=== PATIENT | male | born 1985 | race Caucasian/White ===

== ENCOUNTER 2022-08-01 21:53 | Emergency (ER) | payer MEDICAID, OTHER ==
[~2022-08-01] VITALS: Ht 177.8 cm; Wt 79.4 kg
[~2022-08-01 21:53] MED LIST: CETIRIZINE; CIPR-273; CITA20TA9; FLUN0.02; LEVAPOW; METH100I; MIRT1TAB38; MISCSOL; SERT25TA84; [UNRECOGNIZED DRUG - OTHER]
[2022-08-02] MEDS ORDERED: IPRATROPIUM BROM 0.5 MG/2.5ML INH SOL NEB ONE (00:45)
[2022-08-02] MEDS ORDERED: KETOROLAC TROMETH 60MG/2ML VIAL IM ONE (00:45)
[2022-08-02] MEDS ORDERED: methylPREDNISolone SOD SUCC 40 MG/ML VL IM ONE (00:45)
[2022-08-02] MEDS ORDERED: ALBUTEROL SULF 2.5 MG/0.5ML(0.5%) NEB SOLN NEB ONE (00:45)
[2022-08-02] MEDS ORDERED: ALBU108A5 IN (00:55)
[2022-08-02] MEDS ORDERED: PRED15SO33 PO (00:55)
[2022-08-02] MEDS ORDERED: AZIT100S18 PO (00:55)
[2022-08-02 03:25] VITALS: BP 129/72
== END 2022-08-02 03:25 | disposition home or self-care (01) ==
LOC: ER 22:00
DX: S23.41XA Sprain of ribs, initial encounter (principal); J45.909 Unspecified asthma, uncomplicated; X58.XXXA Exposure to other specified factors, initial encounter; Y93.89 Activity, other specified; Y92.89 Other specified places as the place of occurrence of the external cause; Y99.8 Other external cause status
CPT/HCPCS: 71045; 94640; 96372; 99284; J1885; J2920; J7644